=== PATIENT | male | born 1960 | race Asian ===

== ENCOUNTER 2017-06-06 21:22 | Observation (INO) | payer MEDICARE ==
[~2017-06-06 21:22] MED LIST: ISOVUE-370 76%-LOCM 1 ML ONE
[2017-06-06 22:12] LABS: #Basophils 0.1 thou/uL (0.0-0.2); #Eosinphils 0.1 thou/uL (0.0-0.7); #Lymphocytes 0.8 thou/uL (1.20-3.40); #Monocytes 0.6 thou/uL (0.11-0.59); #Neutrophils 4.7 thou/uL (1.40-6.50); %Basophils 0.8 % (0.0-1.0); %Eosinophils 1.9 % (0.0-10.0); %Lymphocytes 13.2 % (21.0-51.0); %Monocytes 9.6 % (0.0-10.0); Hematocrit 40.5 % (42.0-52.0); Mean Platelet Volume 7.1 fL (7.4-10.4); Red Blood Cell (RBC) Count 4.41 mill/uL (4.70-6.10); White Blood Cell (WBC) Count 6.4 thou/uL (4.8-10.8)
[2017-06-06 22:29] LABS: ALT (SGPT) 40 U/L (8-55); AST (SGOT) 102 U/L (5-34); Alkaline Phosphatase 460 U/L (40-150); Anion Gap 14 mmol/L (10-20); BUN (Urea Nitrogen) 18 mg/dL (8.4-25.7); Bilirubin, Total 2.7 mg/dL (0.2-1.2); CK (CPK) 107 U/L (30-200); Calc. Creatinine Clearance 0 mL/min (70-130); Calcium 9.2 mg/dL (7.8-10.44); Carbon Dioxide 26 mmol/L (22-29); Chloride 102 mmol/L (98-107); Estimated GFR-MDRD 70; Globulin 4.9 g/dL (2.4-3.5); Protein, Total 8.5 g/dL (6.0-8.3)
[2017-06-06 22:31] LABS: Troponin I Less than 0.010 ng/mL (< 0.028)
[2017-06-06 22:42] LABS: Prothrombin Time 13.7 SEC (12.0-14.7)
--- NOTE | 2017-06-06 22:53 | RAD ---
AP VIEW CHEST 06/06/17 HISTORY: Swelling in feet for two weeks. Respiratory distress and dyspnea. AP view chest is obtained. There is a right sided Mediport catheter in place, distal tip overlying t he right atrium. The lungs are well aerated. No evidence of effusions, pneumonia or pneumothorax seen. No evidence of significant acute intrathoracic abnormalities noted. IMPRESSION: Right sided Mediport catheter, otherwise unremarkable AP view chest. POS: [facility]
[2017-06-06 22:59] LABS: ALT (SGPT) 39 U/L (8-55); AST (SGOT) 100 U/L (5-34); Alkaline Phosphatase 458 U/L (40-150); Bilirubin, Direct 1.9 mg/dL (0.1-0.3); Bilirubin, Total 2.7 mg/dL (0.2-1.2); Protein, Total 8.6 g/dL (6.0-8.3)
--- NOTE | 2017-06-06 23:45 | CT ---
CONTRAST ENHANCED CT IMAGES ABDOMEN AND PELVIS: 06/06/17 HISTORY: Bilateral lower extremity edema. Patient with metastatic colon cancer. Contrast enhanced CT images of the abdomen and pelvis obtained after administration of IV contrast. Numerous pulmonary parenchymal masses seen compatible with metastatic disease in the lung bases. The liver has extensive numerous parenchymal lesions expanding much of the left hepatic lobe resulti ng in extensive hepatic metastases. The spleen is unremarkable. Adrenal glands unremarkable. The kid neys are unremarkable. The pancreas is within normal limits. Some ascites is seen. Surgical changes seen in the abdomen with josh. The IVC is slightly hypodense and may represent some clot. IMPRESSION: 1. Small amount of ascites. 2. Extensive mass invasion involving much of the liver and especially the left lobe and portion s of the anterior right lobe. This is compatible with extensive liver metastases. 3. Numerous newly developed pulmonary parenchymal lesions compatible with lung metastases. Thes e have significantly increased since the previous lesions were identified in January 2016. POS: [facility]
[2017-06-07] MEDS ORDERED: Acetaminophen 325 MG TAB PO PRN (03:05)
[2017-06-07] MEDS ORDERED: Ondansetron ODT 4 MG TAB SL PRN (03:05)
[2017-06-07] MEDS ORDERED: Ondansetron HCl/PF 4 MG/2 ML Vial IVP PRN ×2 (03:05→03:23)
[2017-06-07] MEDS ORDERED: Morphine 2 MG/ML SYRINGE SLOW IVP PRN ×2 (03:23→05:38)
[2017-06-07] MEDS ORDERED: HYDROcodone/Acetaminophen 5/325 mg Tablet PO PRN (03:23)
[2017-06-07] MEDS ORDERED: Calcium Carbonate 500 MG ChewTAB PO PRN (03:23)
[2017-06-07] MEDS ORDERED: Bisacodyl 10 MG SUPP PR PRN (03:23)
[2017-06-07 03:57] LABS: #Basophils 0.1 thou/uL (0.0-0.2); #Eosinphils 0.1 thou/uL (0.0-0.7); #Lymphocytes 0.9 thou/uL (1.20-3.40); #Monocytes 0.7 thou/uL (0.11-0.59); #Neutrophils 4.7 thou/uL (1.40-6.50); %Basophils 0.9 % (0.0-1.0); %Eosinophils 1.7 % (0.0-10.0); %Lymphocytes 13.9 % (21.0-51.0); %Monocytes 11.3 % (0.0-10.0); Hematocrit 39.2 % (42.0-52.0); Mean Platelet Volume 6.6 fL (7.4-10.4); Red Blood Cell (RBC) Count 4.34 mill/uL (4.70-6.10); White Blood Cell (WBC) Count 6.5 thou/uL (4.8-10.8)
[2017-06-07 04:19] LABS: ALT (SGPT) 37 U/L (8-55); AST (SGOT) 95 U/L (5-34); Alkaline Phosphatase 412 U/L (40-150); Anion Gap 10 mmol/L (10-20); BUN (Urea Nitrogen) 18 mg/dL (8.4-25.7); Bilirubin, Total 2.4 mg/dL (0.2-1.2); Calc. Creatinine Clearance 0 mL/min (70-130); Calcium 8.8 mg/dL (7.8-10.44); Carbon Dioxide 27 mmol/L (22-29); Chloride 103 mmol/L (98-107); Estimated GFR-MDRD 84; Globulin 4.4 g/dL (2.4-3.5); Protein, Total 7.7 g/dL (6.0-8.3)
[2017-06-07] MEDS ORDERED: diphenhydrAMINE 50 MG/ML VIAL IVP PRN (04:54)
[2017-06-07 05:01] VITALS: BMI 25.7
--- NOTE | 2017-06-07 05:48 | HP ---
CHIEF COMPLAINT: Abdominal pain and bilateral leg swelling. HISTORY OF PRESENT ILLNESS: This is a 56-year-old, pleasant gentleman with a history of colon cance r with METs to the liver, who comes into the hospital with bilateral leg swelling, which has worsene d over the last 2 weeks. He also complains of some dull abdominal pain over the epigastric area goi ng into the right upper quadrant, which has worsened over the last 2 weeks. He describes the pain t o be dull about 5/10 in intensity. He also says that it is associated with loss of appetite and renée e associated weight loss. The patient denies any fever or chills. On further examining and letting him know about the CT scan results, which were done in the ER, which showed a lung METs and further increase in the mass of the left lower lobe of liver. He says that he knows he anticipated that an d he mainly needs to be kept comfortable and he needs some pain medications to be kept with pain. H e also told me that he wants to be a DNR. When I discussed palliative care and hospice, he said sedrick t he is willing to discuss with them. First, to see if that is a good fit for him before entertaini ng any other medical intervention. He is going to be admitted for observation for pain management f or the abdominal pain and for palliative care consult. The patient denies any fever, chills, diarrh ea, nausea or vomiting. PAST MEDICAL HISTORY: Significant for colon cancer with METs, status post surgery and chemotherapy, now with lung metastasis. ALLERGIES: No known drug allergies. CURRENT MEDICATIONS: None. PAST SURGICAL HISTORY: Significant for a partial colectomy 3 years ago, radiofrequency ablation of the liver metastasis x3. The patient has completed 8 cycles of chemotherapy at [facility] an d also has a Port-A-Cath placement. FAMILY HISTORY: Significant for prostate cancer in 1 brother and another brother with liver cancer. Denies any family history of diabetes, hypertension or heart disease. SOCIAL HISTORY: Retired drone operator. Admits to smoking half a pack per day. Admits to occasional al cohol use. No illicit drug use. REVIEW OF SYSTEMS: Significant for abdominal pain and bilateral leg pain. Otherwise, no fever, no chills, no headache, no appetite, no hearing loss, no latencies. No cough, no chest pain, diarrhea, dysuria, or polyuria. No memory or mood changes. No neck pain. He has been jaundiced for some ti me for now he says. PHYSICAL EXAMINATION: VITAL SIGNS: Blood pressure is 114/80, temperature is afebrile, pulse is 87, respirations 16. GENERAL: The patient is lying in bed, in no apparent respiratory distress right now. HEENT: Atraumatic. Icteric sclerae. Pupils are equally round and reactive to light. Extraocular movements intact. Mucous membranes moist. NECK: No JVD. CHEST: Some coarse breath sounds, scattered rhonchi. HEART: S1, S2 normal. No murmurs or gallops. ABDOMEN: Soft. Some mild tenderness over the right upper quadrant and epigastric area. No rebound , no rigidity. Bowel sounds are normal. EXTREMITIES: Bilateral pedal edema is going up from the ankle to the middle of the finnegan area. Dist al pulses cannot be palpated. No cyanosis. NEUROLOGIC: Alert, awake, oriented. No cranial deficits. No sensorimotor deficits. LABORATORY DATA: A CT scan of the abdomen shows small ascites, extensive mass in the left liver lob e, lung METs, bilirubin of 2.7, direct bilirubin 1.9, alkaline phosphatase 458, AST 100, lipase 51. Troponin 0.01, CK 107, potassium 3.8, creatinine 1.08. WBC count is 6.4, hemoglobin is 13. Chest x-ray shows right-sided MediPort. ASSESSMENT AND PLAN: 1. Abdominal distention secondary to worsening of the liver metastasis of the colon cancer. Germain camejo wants palliative care for now. He says that he will let the physicians and the staff know in case he changes his mind and wants some additional medical therapy. I have consulted physical therapy f or the pain control. I have given morphine and some hydrocodone for now. 2. Obstructive jaundice, possibly secondary to liver mass. 3. Lung METs, patient is not short of breath currently. We will give him some p.r.n. neb treatment s. 4. Elevated liver enzymes secondary to liver mass. 5. Occasional tobacco use, occasional social use, alcohol use. He has been consulted. I will work with a palliative care in further caring for the patient. Again, patient is DNR. 6. Sequential compression devices for deep venous thrombosis prophylaxis for now. I will try to ke ep him as comfortable as possible and respect his wishes, and I will talk to him in the morning abou t further goals of therapy.
[2017-06-07] MEDS ORDERED: Famotidine 20 MG TAB PO SCH (09:00)
--- OUTSIDE RECORDS SUMMARY | 2017-06-07 10:07 | XMS | Clinical Summary ---
:1960 Author Organization [facility] Address [address] [place] [address] Phone Care Team Providers Name Role Phone , Primary Care Provider Unavailable Allergies Not on File Current Medications Not on file Active Problems Not on file Social History Tobacco Use Types Packs/Day Years Used Date Never Assessed Sex Assigned at Date Recorded Not on file Last Filed Vital Signs Not on file Plan of Treatment Not on file Results Not on filefrom Last 3 Months
--- NOTE | 2017-06-07 13:28 | CON ---
DATE OF CONSULTATION: 06/07/2017 REASON FOR CONSULTATION: Metastatic colon cancer. HISTORY OF PRESENT ILLNESS: Mr. Soto is a very pleasant 56-year-old gentleman with a history of colon cancer and liver metastasis, diagnosed approximately 4 years ago. He presented to this facility with complaints of abdominal pain and bilateral lower extremity swelling. He had an abdominal and pelvis CT performed, which showed extensive liver metastasis. He also had some lung parenchymal lesions compatible with lung metastasis. Patient states he was diagnosed 4 years ago. He underwent chemotherapy with what sounds like FOLFOX and he had ablation of his liver. He said it was unsuccessful. He then completed 3 cycles of chemotherapy in 2016. He said it made him so sick that he decided to stop, so he has had no treatment over the past 12 months. He says he has been doing well until approximately 2 weeks ago when he began to have the abdominal pain and leg swelling. He admits that he has begun to lose weight again and has had an early satiety. He denies any neurological changes. No chest pain or shortness of breath. No diarrhea or constipation. PAST MEDICAL HISTORY: Metastatic colon cancer. PAST SURGICAL HISTORY: 1. Hemicolectomy. 2. Radiofrequency ablation of the liver. ALLERGIES: No known drug allergies. HOME MEDICATIONS: None. FAMILY HISTORY: His brother had prostate cancer. SOCIAL HISTORY: Single, lives with his girlfriend. Half a pack of cigarettes daily. No alcohol or illicit drug use. REVIEW OF SYSTEMS: Ten-point review of systems is negative except for noted in HPI. PHYSICAL EXAMINATION: VITAL SIGNS: Temperature is 98.3, pulse is 94, respiratory rate 16, BP is 113/ 78 and he is 94% on room air. GENERAL: A well-developed, well-nourished male in no acute distress. HEENT: Normocephalic and atraumatic. Pupils are equal and reactive to light. NECK: Supple without JVD or masses. CARDIOVASCULAR: Regular rate and rhythm. LUNGS: Clear. ABDOMEN: Mildly tender in the right upper quadrant. Bowel sounds are positive. EXTREMITIES: He has got 2+ edema in bilateral lower extremities. SKIN: No rash. He has good healing scars in his abdomen. HEMATOLOGICAL: There is no petechia or purpura. NEUROLOGIC: Nonfocal. PSYCHIATRIC: The patient is alert and oriented and appropriate. PERTINENT LABORATORY AND X-RAYS: Current WBCs are 6.5, hemoglobin 12.6, hematocrit 39.2 and platelet count is 284,000. He has got 72% neutrophils and 14% lymphocytes. PT is 13.7 and INR is 1.0. Chemistry is 136, potassium is 4.2 , chloride 103, CO2 is 27, BUN is 18, creatinine is 0.92, calcium is 8.8, total bilirubin is 2.4, AST is 95, ALT is 37 and alkaline phosphatase is 412. Troponin is negative. Serum total protein is 7.7, albumin is 3.3, globulin is 4.4 and lipase is 51. Radiology per HPI. ASSESSMENT: 1. Metastatic colon cancer. 2. Bilateral lower extremity swelling. DISCUSSION: I discussed with patient that there may still be chemotherapy or immunotherapy treatment options available. I offered to obtain his medical records and have this discussion in the outpatient setting. He states that he is reconciled that this is incurable disease and would like to live out the rest of his life focusing on quality versus quantity. We did discuss hospice options and the services they can provide for him. He declines further treatment options and would like to pursue hospice. Case management will be consulted for their assistance. Thank you for the consult. MARTHA
[2017-06-07 16:21] VITALS: BP 107/73; TEMP 99.5
--- NOTE | 2017-06-08 08:45 | DIS ---
DATE OF ADMISSION: 06/07/2017 DATE OF DISCHARGE: 06/07/2017 DISCHARGE DISPOSITION: Home with hospice. BRIEF HOSPITAL COURSE: The patient is a 56-year-old male who was admitted earlier today with abdomi nal pain and bilateral lower extremity swelling. He has a history of metastatic colon cancer and gerard s had chemotherapy in the past. He states that the chemotherapy was recently discontinued since it was not working per patient's report. Please refer to the history and physical for further details. The patient was admitted to the hospital with the diagnosis of abdominal pain and lower extremity sw elling, probably secondary to progression of his malignancy. CT scan of the abdomen and pelvis done in the emergency room showed small amount of ascites with extensive mass invasion involving much of the liver and especially the left lobe and the portion of the anterior right lobe compatible with e xtensive liver metastasis. There were also numerous newly developed pulmonary lesions compatible wi th lung metastasis. He was evaluated by Oncology Service and declined further treatment. He will b e discharged home with hospice. Discharge medication, tramadol as needed. Other medications per soraya hawkins. FINAL DIAGNOSES: 1. Abdominal pain secondary to metastatic colon cancer. 2. Ascites. 3. Chronic anemia. 4. Abnormal liver function tests secondary to liver metastasis. 5. Chronic kidney disease stage 2. 6. Tobacco dependence. Plan of care was discussed with the patient. He stated understanding.
--- NOTE | 2017-06-15 15:57 | EKG ---
Test Reason : Blood Pressure : / mmHG Vent. Rate : 080 BPM Atrial Rate : 080 BPM P-R Int : 140 ms QRS Dur : 070 ms QT Int : 386 ms P-R-T Axes : 062 025 022 degrees QTc Int : 445 ms Normal sinus rhythm Normal ECG Confirmed by ALFONSO GOMEZ, ANDREY ([id number]), film editor supervisor VERONIKA CHILDERS ([id number]) on 06/15/2017 3:57:29 PM Referred By: ALFONSO Confirmed By:ANDREY HAMILTON MD
== END 2017-06-07 19:21 | disposition home or self-care (01) ==
LOC: ERS 21:22 → INTOOBSV 06-07 01:02 → ONC 06-07 01:02
PROVIDERS: ADMIT Internal Medicine; ATTEND Internal Medicine
DX: R10.13 Epigastric pain (principal); C18.9 Malignant neoplasm of colon, unspecified; C78.7 Secondary malignant neoplasm of liver and intrahepatic bile duct; C78.00 Secondary malignant neoplasm of unspecified lung; R18.8 Other ascites; D64.9 Anemia, unspecified; R94.5 Abnormal results of liver function studies; N18.2 Chronic kidney disease, stage 2 (mild); F17.210 Nicotine dependence, cigarettes, uncomplicated; K83.1 Obstruction of bile duct; Z90.49 Acquired absence of other specified parts of digestive tract; Z98.890 Other specified postprocedural states; Z92.21 Personal history of antineoplastic chemotherapy; Z92.3 Personal history of irradiation
CPT/HCPCS: 71010; 74177; 80053 ×2; 80076; 82550; 82553; 83690; 84484; 85025 ×2; 85610; 93005; 96374; 96376; 99285; G0378; 36415; J2270